=== PATIENT | male | born 1980 | race Caucasian/White ===

== ENCOUNTER 2016-06-16 01:48 | Emergency (ER) | payer MEDICAID ==
--- NOTE | 2016-06-16 02:34 | EDPHY ---
H & P <Estuardo Dumont - Last Filed: 06/16/16 15:55> Stated Complaint: Depression - Personal History Current Tetanus/Diphtheria Vaccine: No - Medical/Surgical History Hx Asthma: No Hx Chronic Respiratory Disease: No Hx Diabetes: No Hx Cardiac Disease: No Hx Renal Disease: No Hx Cirrhosis: No Hx Alcoholism: No Hx HIV/AIDS: No Hx Splenectomy or Spleen Trauma: No Other PMH: Hypertension - Social History Smoking Status: Current some day smoker <Mundo Cruz - Last Filed: 06/17/16 02:14> <Rosa Ramos - Last Filed: 06/17/16 13:42> Time Seen by Provider: 06/16/16 02:14 HPI/ROS: Chief complaint: Depression and suicidal ideation HPI: 35-year-old male patient presenting with an acute exacerbation of depression with suicidal ideation. Patient states that he has been struggling with depression for years but this been particularly worse for the last 3 years ever since he splint from his . He has also states that he has lost his home. 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 He has been seen for his depression in the past was prescribed Wellbutrin but was unable to tolerate this. He states that he feels suicidal and depressed nearly every day. At this point he feels that things are hopeless and feels that he would be better off . The only reason he is staying alive is for the sake of his son. He states he does have several plans of how to commit suicide but he is unwilling the shows with me at this time. Does drink occasional alcohol. Denies any other drug use. Also states that he suffers from some chronic diarrhea. No fevers chills. No nausea vomiting. No chest pain abdominal pain or shortness of breath. ROS: 10 point Review of Systems is negative except as noted in the HPI. Past medical history: Depression Medications: None Allergies: Wellbutrin Physical exam: Gen: Awake, Alert, No Distress HEENT: Nose: no rhinorrhea Eyes: PERRLA, EOMI Mouth: Moist mucosa Neck: Supple, no JVD Chest: nontender, lungs clear to auscultation Heart: S1, S2 normal, no murmur Abd: Soft, non-tender, no guarding Back: no CVA tenderness, no midline tenderness Ext: no edema, non-tender Skin: no rash Neuro: CN II-XII intact, Sensation grossly intact, Strength 5/5 in bilateral upper and lower extremities (Mundo Cruz) Constitutional: Initial Vital Signs Temperature (C) 36.8 C 06/16/16 01:51 Heart Rate 80 06/16/16 01:51 Respiratory Rate 20 06/16/16 01:51 Blood Pressure 156/105 H 06/16/16 01:51 O2 Sat (%) 96 06/16/16 01:51 O2 Delivery Mode Room Air Allergies/Adverse Reactions: No Known Allergies Allergy (Verified 11/08/15 19:20) Home Medications: Medication Instructions Recorded Herbal Med For Htn 10/12/13 oxyCODONE/APAP 325 [Percocet 1 - 2 tab PO Q4H PRN #10 tab 11/08/15 5325 (*)] Medical Decision Making <Estuardo Dumont - Last Filed: 06/16/16 15:55> <Mundo Cruz - Last Filed: 06/17/16 02:14> <Rosa Ramos - Last Filed: 06/17/16 13:42> ED Course/Re-evaluation: I took over care of this patient at 3:30 p.m.. This patient is on an M1 hold for suicidal ideation and depression. 3:50 p.m., the patient has been accepted to [facility] for further psychiatric evaluation and management. I have filled out the appropriate transfer paperwork. The patient's remaining emergency department course under my care has been uneventful. He was transferred to [facility] in stable condition. (Estuardo Dumont) [address] Ramos pending placement. (Mundo Cruz) 7am-I assumed care of this pt at shift change. Eval pending. eval completed and pt placed on M1 hold. Looking for placement. 3pm-signed over to Dr. Dumont at shift change. (Rosa Ramos) Other Provider: 0700: Assumed care of this patient from Dr. Cruz at shift change. This is a 35 y/o male with a history of depression who arrived voluntarily for suicidal ideations. He is awaiting EPS evaluation. 0725: EPS has evaluated patient and will place him on an M1 hold and look for inpt disposition. (Rosa Ramos) - Data Points Laboratory Results: Laboratory Results 06/16/16 02:48 06/16/16 02:48 Medications Given: Discontinued Medications Lorazepam (Ativan) 1 mg PO EDNOW ONE Stop: 06/16/16 08:57 Last Admin: 06/16/16 08:59 Dose: 1 mg Lorazepam (Ativan) 1 mg PO EDNOW ONE Stop: 06/16/16 10:00 Last Admin: 06/16/16 10:10 Dose: 1 mg Lorazepam (Ativan) 1 mg PO EDNOW ONE Stop: 06/16/16 17:42 Last Admin: 06/16/16 17:42 Dose: 1 mg Nicotine Polacrilex (Nicorette) 2 mg B EDNOW ONE Stop: 06/16/16 09:04 Last Admin: 06/16/16 09:09 Dose: 2 mg Departure <Estuardo Dumont - Last Filed: 06/16/16 15:55> <Mundo Cruz - Last Filed: 06/17/16 02:14> <Rosa Ramos - Last Filed: 06/17/16 13:42> - Departure Disposition: Other Psych, Not Leann Clinical Impression: Suicidal ideation Depression Qualifiers: Depression Type: major depressive disorder Major depression recurrence: recurrent Active/Remission status: currently active Major depression episode severity: severe Psychotic features: without psychotic features Qualified Code(s ): F33.2 - Major depressive disorder, recurrent severe without psychotic features Condition: Fair Referrals: NONE *PRIMARY CARE P,. [Primary Care Provider] - As per Instructions <Estuardo Dumont - Last Filed: 06/16/16 15:55> <Mundo Cruz - Last Filed: 06/17/16 02:14> Report Scribed for: Rosa Ramos Report Scribed by: Jolanta Mott Date of Report: 06/16/16 Time of Report: 09:10 <Rosa Ramos - Last Filed: 06/17/16 13:42> Physician Review and Approval Statement: 06/16/16 09:10 Portions of this note were transcribed by a medical typist. I personally performed a history, physical exam, medical decision making, and confirmed accuracy of information the transcribed note. (Rosa Ramos)
[2016-06-16 02:55] LABS: % IMMATURE GRANULYOCYTES 0.6 % (0.0-1.1); ABSOLUTE IMMATURE GRANULOCYTES 0.06 10^3/uL (0.00-0.10); ADD DIFF? NO; ADD MORPH? NO; ADD SCAN? NO; ATYPICAL LYMPHOCYTE FLAG 10 (0-99); FRAGMENT RBC FLAG 0 (0-99); HEMATOCRIT 47.3 % (40.0-51.0); HEMOGLOBIN 16.8 g/dL (13.7-17.5); LEFT SHIFT FLG 0 (0-99); LIPEMIA HEMOLYSIS FLAG 90 (0-99); MEAN CELL HEMOGLOBIN 31.8 pg (27.9-34.1); MEAN CELL HEMOGLOBIN CONCENTR. 35.5 g/dL (32.4-36.7); MEAN CELL VOLUME 89.4 fL (81.5-99.8); MEAN PLATELET VOLUME 9.7 fL (8.7-11.7); PLATELET CLUMPS FLAG 10 (0-99); PLATELET COUNT 270 10^3/uL (150-400); RED BLOOD CELL COUNT 5.29 10^6/uL (4.40-6.38); RED CELL DISTRIBUTION WIDTH 11.9 % (11.5-15.2)
[2016-06-16 03:06] LABS: ANION GAP 14 mEq/L (8-16); CALCIUM 10.1 mg/dL (8.5-10.4); CARBON DIOXIDE 21 mEq/l (22-31); CHLORIDE 105 mEq/L (97-110); CREATININE 0.8 mg/dL (0.7-1.3); ETHANOL SERUM < 10 mg/dL (0-10); GLOMERULAR FILTRATION RATE > 60; GLUCOSE 94 mg/dL (70-100); POTASSIUM 3.9 mEq/L (3.5-5.2); SODIUM 140 mEq/L (134-144)
[2016-06-16] MEDS ORDERED: LORazepam 1 MG TAB PO ONE ×3 (08:56→17:41)
[2016-06-16] MEDS ORDERED: NICOTINE POLACRILEX 2 MG GUM B ONE ×2 (09:03→13:25)
[2016-06-16 15:37] VITALS: RESP 18
[2016-06-16] MEDS ORDERED: LORazepam 1 MG TAB ONE (17:17)
[2016-06-16 17:33] VITALS: BP 153/104; PULSE 78; TEMP 98.2
[2016-06-16 17:41] VITALS: O2SAT 95
== END 2016-06-16 17:41 ==
DX: R45.851 Suicidal ideations (principal); F33.2 Major depressive disorder, recurrent severe without psychotic features; I10 Essential (primary) hypertension; F17.200 Nicotine dependence, unspecified, uncomplicated
CPT/HCPCS: 80305; G0480

== ENCOUNTER 2018-02-20 19:05 | Emergency (ER) | payer MEDICAID ==
[2018-02-20 19:11] VITALS: BP 134/97
--- NOTE | 2018-02-20 19:30 | EDPHY ---
H & P Stated Complaint: SKIN ITCHY AND RED DIFFERENT AREAS X2 DAYS, TOOK BENADRYL Time Seen by Provider: 02/20/18 19:16 HPI/ROS: CHIEF COMPLAINT: Rash HISTORY OF PRESENT ILLNESS: The patient is a 37-year-old man who comes to the emergency department complaining of a diffuse sandpapery rash primarily in his hands and arms and feet. It is itchy. No hives. No purulence. No fever. He did have a viral type illness 2 days ago that has since resolved. No urinary problems. No GI problems. No new medications or exposures. Severity: Moderate Modifying factors: None REVIEW OF SYSTEMS: Constitutional: denies: chills, fever, recent illness, recent injury EENTM: denies: blurred vision, double vision, nose congestion Respiratory: denies: cough, shortness of breath Cardiac: denies: chest pain, irregular heart rate, lightheadedness, palpitations Gastrointestinal/Abdominal: denies: abdominal pain, diarrhea, nausea, vomiting, blood streaked stools Genitourinary: denies: dysuria, frequency, hematuria, pain Musculoskeletal: denies: joint pain, muscle pain Skin: See HPI Neurological: denies: headache, numbness, paresthesia, tingling, dizziness, weakness Hematologic/Lymphatic: denies: blood clots, easy bleeding, easy bruising Immunologic/allergic: denies: HIV/AIDS, transplant 10 systems reviewed and negative except as noted EXAM: GENERAL: Well-appearing, well-nourished and in no acute distress. HEAD: Atraumatic, normocephalic. EYES: Pupils equal round and reactive to light, extraocular movements intact, sclera anicteric, conjunctiva are normal. ENT: TMs normal, nares patent, oropharynx clear without exudates. Moist mucous membranes. NECK: Normal range of motion, supple without lymphadenopathy or JVD. LUNGS: Breath sounds clear to auscultation bilaterally and equal. No wheezes rales or rhonchi. HEART: Regular rate and rhythm without murmurs, rubs or gallops. ABDOMEN: Soft, nontender, normoactive bowel sounds. No guarding, no rebound. No masses appreciated. BACK: No CVA tenderness, no spinal tenderness, step-offs or deformities EXTREMITIES: Normal range of motion, no pitting or edema. No clubbing or cyanosis. NEUROLOGICAL: Cranial nerves II through XII grossly intact. Normal speech, normal gait. 5/5 strength, normal movement in all extremities, normal sensation , normal reflexes PSYCH: Normal mood, normal affect. SKIN: Diffuse sandpapery rash. Very light and hard to see. Complains of this mostly of his hands and feet, some over his arms and upper back. No hives. No lesions. No cellulitis. No fluctuance. No drainage. Source: Patient Exam Limitations: No limitations - Personal History Current Tetanus/Diphtheria Vaccine: Unsure - Medical/Surgical History Hx Asthma: No Hx Chronic Respiratory Disease: No Hx Diabetes: No Hx Cardiac Disease: No Hx Renal Disease: No Hx Cirrhosis: No Hx Alcoholism: No Hx HIV/AIDS: No Hx Splenectomy or Spleen Trauma: No Other PMH: Hypertension - Family History Significant Family History: No pertinent family hx - Social History Smoking Status: Current some day smoker Alcohol Use: Sober Drug Use: None Constitutional: Initial Vital Signs Temperature (C) 36.6 C 02/20/18 19:08 Heart Rate 66 02/20/18 19:08 Respiratory Rate 68 H 02/20/18 19:08 Blood Pressure 134/97 H 02/20/18 19:08 O2 Sat (%) 96 02/20/18 19:08 O2 Delivery Mode Room Air Allergies/Adverse Reactions: No Known Allergies Allergy (Verified 11/08/15 19:20) Home Medications: Medication Instructions Recorded Herbal Med For Htn 10/12/13 oxyCODONE/APAP 5/325 [Percocet 1 - 2 tab PO Q4H PRN #10 tab 11/08/15 5/325 (*)] predniSONE 60 mg PO DAILY #9 tab 02/20/18 Medical Decision Making ED Course/Re-evaluation: Patient has a diffuse sandpapery rash that fits with a viral rash. He has tried Benadryl without significant improvement. I will give him a couple of days of prednisone. This is likely self-limited. We discussed follow-up as well as indications for returning. He is happy with this plan and declines further workup or testing. Differential Diagnosis: Partial list of the Differential diagnosis considered include but were not limited to; viral rash, allergic reaction, dermatitis and although unlikely based on the history and physical exam, I also considered cellulitis, sepsis, sunburn. I discussed these differential diagnoses and the plan with the patient as well as the usual and expected course. The patient understands that the diagnosis is provisional and that in medicine we are not always correct and that further workup is often warranted. Usual and customary warnings were given. All of the patient's questions were answered. The patient was instructed to return to the emergency department should the symptoms at all worsen or return, otherwise to followup with the physician as we discussed. - Data Points Medications Given: Discontinued Medications Prednisone (Prednisone) 60 mg PO EDNOW ONE Stop: 02/20/18 19:32 Last Admin: 02/20/18 19:34 Dose: 60 mg Departure - Departure Disposition: Home, Routine, Self-Care Clinical Impression: Viral rash Condition: Fair Instructions: Viral Exanthem (ED) Referrals: Adrianne Watts MD [Primary Care Provider] - 2-3 days, call for appt. Prescriptions: predniSONE 60 mg PO DAILY #9 tab
[2018-02-20] MEDS ORDERED: predniSONE 20 MG TAB PO ONE (19:31)
== END 2018-02-20 19:43 | disposition home or self-care (01) ==
DX: B09 Unspecified viral infection characterized by skin and mucous membrane lesions (principal); R21 Rash and other nonspecific skin eruption; I10 Essential (primary) hypertension
CPT/HCPCS: J7512